=== PATIENT | male | born 1970 | race American Indian/Alaskan Native ===

== ENCOUNTER 2020-07-13 19:10 | Emergency (ER) | payer MEDICARE, OTHER ==
--- NOTE | 2020-07-13 20:03 | Event Note ---
ED Screening Note ED Screening Note: hx of migraines neurologist a couple of years ago states he is on propronol for migraines left occipital headache that began a couple weeks did not take anything for the headache states he went to [facility] a couple weeks ago and did lab, urine, and EKG did not write anything for headache at that time allergy: sertaline no vision changes no weakness no issues with ambulation or speech states occasionally he has tingling in his left fingers, no tingling or numbness currently This initial assessment/diagnostic orders/clinical plan/treatment(s) is/are subject to change based on patients health status, clinical progression and re- assessment by fellow clinical providers in the ED. Further treatment and workup at subsequent clinical providers discretion. Patient/guardian urged not to elope from the ED as their condition may be serious if not clinically assessed and managed. Initial orders include: ct head ACC
--- NOTE | 2020-07-13 21:17 | Cat Scan Report ---
CT HEAD WITHOUT CONTRAST INDICATION / CLINICAL INFORMATION: left occipital WINTER, tingling left fingers. TECHNIQUE: All CT scans at this location are performed using CT dose reduction for ALARA by means of automated e xposure control. COMPARISON: None available. FINDINGS: HEMORRHAGE: None. EXTRA-AXIAL SPACES: Normal in size and morphology for the patient's age. VENTRICULAR SYSTEM: Normal in size and morphology for the patient's age. CEREBRAL PARENCHYMA: No significant abnormality. No acute territorial infarct. MIDLINE SHIFT OR HERNIATION: None. CEREBELLUM / BRAINSTEM: No significant abnormality. ORBITS: Normal as visualized. SOFT TISSUES of HEAD: No significant abnormality. CALVARIUM: No significant abnormality. PARANASAL SINUSES / MASTOID AIR CELLS: Normal as visualized. ADDITIONAL FINDINGS: None. IMPRESSION: 1. No acute intracranial abnormality. Signer Name: Aiden Burrell MD Signed: 07/13/2020 9:13 PM Workstation Name: [id number]
--- NOTE | 2020-07-13 22:52 | Emergency Department Report ---
ED Headache HPI - General Chief Complaint: Headache Stated Complaint: CHEST PAIN/MIGRAINE/NAUSEA Time Seen by Provider: 07/13/20 19:59 Source: patient, RN notes reviewed Exam Limitations: no limitations - History of Present Illness Initial Comments: 50-year-old -[place] male with a known history of migraine presents emerged department complaining of having occipital headache off and on for the past couple days not responding to his propanolol so decided come to the emergency department and be evaluated. States that is not quite the same migraine pattern as there was no visual changes no scotomas reports no chest pain no palpitation did have a vague lightheadedness which was spontaneous and now resolved. Reports no numbness or tingling no no weakness no speech issue no syncope Head Injury Location: occipital Recent Head Trauma: no recent headache/trauma Associated Symptoms: denies symptoms. denies: confusion, fatigue, fever/chills, nausea/vomiting, nasal congestion, stiff neck, vision changes Allergies/Adverse Reactions: Allergies sertraline [From Zoloft] Adverse Reaction (Verified 07/13/20 19:24) Angioedema Home Medications: Ambulatory Orders Ketorolac [Toradol] 10 mg PO Q6H PRN #10 tablet 07/13/20 ED Review of Systems ROS: Stated complaint: CHEST PAIN/MIGRAINE/NAUSEA Other details as noted in HPI Comment: All other systems reviewed and negative ED Past Medical Hx - Past Medical History Hx Headaches / Migraines: Yes Hx Psychiatric Treatment: Yes (ptsd) - Surgical History Past Surgical History?: No - Social History Smoking Status: Never Smoker Substance Use Type: None - Medications Home Medications: Home Medications Medication Instructions Recorded Confirmed Last Taken Type Ketorolac [Toradol] 10 mg PO Q6H PRN #10 tablet 07/13/20 Unknown Rx ED Physical Exam - General Limitations: No Limitations General appearance: alert, in no apparent distress - Head Head exam: Present: atraumatic, normocephalic - Eye Eye exam: Present: normal appearance, PERRL, EOMI. Absent: nystagmus Pupils: Present: other (Negative funduscopic examination) - ENT ENT exam: Present: mucous membranes moist - Neck Neck exam: Present: normal inspection - Respiratory Respiratory exam: Present: normal lung sounds bilaterally. Absent: respiratory distress - Cardiovascular Cardiovascular Exam: Present: regular rate, normal rhythm. Absent: systolic murmur, diastolic murmur, rubs, gallop - GI/Abdominal GI/Abdominal exam: Present: soft, normal bowel sounds - Rectal Rectal exam: Present: deferred - Extremities Exam Extremities exam: Present: normal inspection - Back Exam Back exam: Present: normal inspection. Absent: CVA tenderness (R), CVA tenderness (L) - Neurological Exam Neurological exam: Present: alert, oriented X3, CN II-XII intact, normal gait, reflexes normal, other (Romberg negative normal [id number] normal [id number]-[id number] gait coordinated and smooth no ataxia speech is clear normal). Absent: motor sensory deficit - Psychiatric Psychiatric exam: Present: normal affect, normal mood - Skin Skin exam: Present: warm, dry, intact, normal color. Absent: rash ED Course Vital Signs 07/13/20 19:23 Temperature 97.8 F Pulse Rate 72 Respiratory 20 Rate Blood Pressure 133/81 O2 Sat by Pulse 99 Oximetry ED Medical Decision Making - Radiology Data Radiology results: [place] [address] Cat Scan Report Signed Patient: PASTORA HILL MR#: [id number] : 1970 Acct:[id number] Age/Sex: 50 / M ADM Date: 07/13/20 Loc: ED Attending Dr: Ordering Physician: JESSIE MOLINA Date of Service: 07/13/20 Procedure(s): CT head/brain wo con Accession Number(s): [id number] cc: JESSIE MOLINA CT HEAD WITHOUT CONTRAST INDICATION / CLINICAL INFORMATION: left occipital WINTER, tingling left fingers. TECHNIQUE: All CT scans at this location are performed using CT dose reduction for ALARA by means of automated exposure control. COMPARISON: None available. FINDINGS: HEMORRHAGE: None. EXTRA-AXIAL SPACES: Normal in size and morphology for the patient's age. VENTRICULAR SYSTEM: Normal in size and morphology for the patient's age. CEREBRAL PARENCHYMA: No significant abnormality. No acute territorial infarct. MIDLINE SHIFT OR HERNIATION: None. CEREBELLUM / BRAINSTEM: No significant abnormality. ORBITS: Normal as visualized. SOFT TISSUES of HEAD: No significant abnormality. CALVARIUM: No significant abnormality. PARANASAL SINUSES / MASTOID AIR CELLS: Normal as visualized. ADDITIONAL FINDINGS: None. IMPRESSION: 1. No acute intracranial abnormality. Signer Name: Aiden Burrell MD Signed: 07/13/2020 9:13 PM Workstation Name: [id number] Transcribed By: TL Dictated By: Aiden Burrell MD Electronically Authenticated By: Aiden Burrell MD Signed Date/Time: 07/13/202112 DD/ 10 TD/TT: - Medical Decision Making This patient presents with a headache most consistent with occipital headache. Differential diagnosis includes migraine versus tension type headache also occipital neuralgia. No headache red flags. Neurologic exam without evidence of meningismus, focal neurologic findings.Based on the patient's history and physical there is very low clinical suspicion for significant intracranial pathology. The headache was NOT sudden onset, NOT maximal at onset, there are NO neurologic findings, the patient does NOT have a fever, the patient does NOT have any jaw claudication, the patient does NOT endorse a clotting disorder, patient DENIES any trauma or eye pain and the headache is NOT associated with dizziness or ataxia. Presentation not consistent with acute intracranial bleed to include SAH (lack of risk factors, headache history). Presentation not consistent with acute LIME SLUDGE MIXER infection to include meningitis or brain abscess, Temporal arteritis unlikely, as is acute angle closure glaucoma given history and physical findings. Presentation not consistent with other acute, emergent causes of headache at this time. Plan to treat symptomatically with pain medication. No indication for imaging/LP at this time. Plan: pain medication, CT brain was normal, serial reassessment Critical care attestation.: If time is entered above; I have spent that time in minutes in the direct care of this critically ill patient, excluding procedure time. ED Disposition Clinical Impression: Cephalgia Disposition: DC-01 TO HOME OR SELFCARE Is pt being admited?: No Does the pt Need Aspirin: No Condition: Stable Instructions: Occipital Neuralgia, Form - Headache Record, Migraine Headache, [id number] Prescriptions: Ketorolac [Toradol] 10 mg PO Q6H PRN #10 tablet PRN Reason: Pain Referrals: PRIMARY CARE, [Primary Care Provider] - 3-5 Days [facility] [Provider Group] - 3-5 Days ERIN JASSO MD [Staff Physician] - 3-5 Days
[2020-07-13 22:56] VITALS: BP 122/77
== END 2020-07-13 23:43 | disposition home or self-care (01) ==
LOC: ED 19:10
DX: R51.9 Headache, unspecified (principal); R42 Dizziness and giddiness; Z79.899 Other long term (current) drug therapy; Z88.8 Allergy status to other drugs, medicaments and biological substances
CPT/HCPCS: 70450

== ENCOUNTER 2020-09-18 00:02 | Emergency (ER) | payer MEDICARE, OTHER ==
--- NOTE | 2020-09-18 00:09 | Emergency Department Report ---
Blank Doc - Documentation Documentation: 2-3-day history of chest pain with numbness tingling burning of radiates to the left arm of unknown etiology. No infectious symptoms no infectious contacts no hemoptysis no hematemesis This initial assessment/diagnostic orders/clinical plan/treatment(s) is/are subject to change based on patients health status, clinical progression and re- assessment by fellow clinical providers in the ED. Further treatment and workup at subsequent clinical providers discretion. Patient/guardian urged not to elope from the ED as their condition may be serious if not clinically assessed and managed. Initial orders include: Cardiac eval
[2020-09-18 00:26] LABS: Basophils % (Auto) 0.8 % (0.0-1.8); Eosinophils # (Auto) 0.1 K/mm3 (0.0-0.4); Hematocrit 39.5 % (35.5-45.6); Hemoglobin 13.8 gm/dl (11.8-15.2); Lymphocytes # (Auto) 2.9 K/mm3 (1.2-5.4); Mean Corpuscular HGB Conc 35 % (32-34); Mean Corpuscular Volume 93 fl (84-94); Monocytes # (Auto) 0.7 K/mm3 (0.0-0.8); Monocytes % (Auto) 11.4 % (0.0-7.3); Platelet Count 198 K/mm3 (140-440); Red Blood Count 4.24 M/mm3 (3.65-5.03); Red Cell Distribution Width 12.8 % (13.2-15.2)
[2020-09-18 00:50] LABS: Alanine Aminotransferase 19 units/L (7-56); Albumin 4.4 g/dL (3.9-5); BUN/Creatinine Ratio 18; Blood Urea Nitrogen 14 mg/dL (9-20); Calcium 9.4 mg/dL (8.4-10.2); Hemolysis Index 7
--- NOTE | 2020-09-18 00:52 | Emergency Department Report ---
ED Chest Pain HPI - General Chief Complaint: Chest Pain Stated Complaint: CHEST PAIN/LEFT SIDE NUMBNESS Time Seen by Provider: 09/18/20 00:34 Source: patient Mode of arrival: Ambulatory Limitations: No Limitations - History of Present Illness Initial Comments: This is a 50-year-old -Irish male who presents to the emergency department with a complaint of a throbbing pain to the left lateral chest and some radiation down the left arm. The pain, in the left arm, is mostly to the forearm. Patient says that this happened about a week ago but it went away. This evening, the pain started while he was at home resting, so he came in for further evaluation. At the time of my examination he no longer has the chest pain but still feels the throbbing pain in the left arm. He denies any shortness of breath, nausea, vomiting, back pain, diaphoresis, lower extremity swelling, fever. He did not take anything for his symptoms prior to presenta tion today. No recent travel or sick contacts at home. He follows with the [facility] for primary care. He has a past medical history of migraine headaches, anxiety, and PTSD. He is an occasional cigar smoker. He denies any illicit drug use. No known aggravating or alleviating factors. Severity scale (0 -10): 5 - Related Data Previous Rx's Medication Instructions Recorded Last Taken Type Ketorolac [Toradol] 10 mg PO Q6H PRN #10 tablet 07/13/20 Unknown Rx Allergies Allergy/AdvReac Type Severity Reaction Status Date / Time sertraline [From Zoloft] AdvReac Angioedema Verified 07/13/20 19:24 Heart Score - HEART Score History: Slightly suspicious EKG: Normal Age: 45-65 Risk factors: 1-2 risk factors Troponin: < normal limit HEART Score: 2 - Critical Actions Critical Actions: 0-3 pts:0.9-1.7%risk of adverse cardiac event.Candidate for discharge ED Review of Systems ROS: Stated complaint: CHEST PAIN/LEFT SIDE NUMBNESS Other details as noted in HPI Comment: All other systems reviewed and negative Constitutional: denies: chills, fever Eyes: denies: eye pain, vision change ENT: denies: ear pain, throat pain Respiratory: denies: cough, shortness of breath Cardiovascular: chest pain. denies: palpitations Gastrointestinal: denies: abdominal pain, vomiting Genitourinary: denies: dysuria, discharge Musculoskeletal: arthralgia. denies: joint swelling Skin: denies: rash, lesions Neurological: denies: weakness, numbness ED Past Medical Hx - Past Medical History Previous Medical History?: Yes Hx Headaches / Migraines: Yes Hx Psychiatric Treatment: Yes (ptsd) - Surgical History Past Surgical History?: No - Social History Smoking Status: Current Some Day Smoker Substance Use Type: None - Medications Home Medications: Home Medications Medication Instructions Recorded Confirmed Last Taken Type Ketorolac [Toradol] 10 mg PO Q6H PRN #10 tablet 07/13/20 Unknown Rx ED Physical Exam - General Limitations: No Limitations - Other Other exam information: GENERAL: The patient is well-developed well-nourished. HENT: Normocephalic. Atraumatic. Patient has moist mucous membranes. EYES: Extraocular motions are intact. NECK: Supple. Trachea is midline. CHEST/LUNGS: Clear to auscultation. There is no respiratory distress noted. HEART/CARDIOVASCULAR: Regular. There is no tachycardia. There is no murmur. ABDOMEN: Abdomen is soft, nontender. Patient has normal bowel sounds. SKIN: Skin is warm and dry. NEURO: The patient is awake, alert, and oriented. The patient is cooperative. The patient has no focal neurologic deficits. Normal speech. MUSCULOSKELETAL: There is some mild reproducible tenderness to palpation to the left forearm. No obvious deformity. Radial pulse +2/4 and capillary refill less than 2 seconds to the affected left upper extremity.. There is no limitation range of motion. There is no evidence of acute injury. ED Course Vital Signs 09/18/20 09/18/20 09/18/20 00:08 00:43 02:00 Temperature 98.1 F Pulse Rate 98 H 64 Respiratory 16 18 16 Rate Blood Pressure 130/85 112/62 [right arm] O2 Sat by Pulse 96 99 Oximetry 09/18/20 09/18/20 03:00 03:52 Temperature 98.2 F Pulse Rate 79 79 Respiratory 16 16 Rate Blood Pressure 128/76 106/56 [right arm] O2 Sat by Pulse 99 99 Oximetry DELL score - Dell Score Age > 65: (0) No Aspirin use within the Past 7 Days: (0) No 3 or more CAD Risk Factors: (0) No 2 or more Angina events in past 24 hrs: (1) Yes Known CAD with more than 50% Stenosis: (0) No Elevated Cardiac Markers: (0) No ST Deviation Greater than 0.5mm: (0) No DELL Score: 1 ED Medical Decision Making - Lab Data Result diagrams: 09/18/20 00:11 09/18/20 00:11 Lab Results 09/18/20 09/18/20 09/18/20 Range/Units 00:11 00:11 03:01 WBC 6.1 (4.5-11.0) K/mm3 RBC 4.24 (3.65-5.03) M/mm3 Hgb 13.8 (11.8-15.2) gm/dl Hct 39.5 (35.5-45.6) % MCV 93 (84-94) fl MCH 33 H (28-32) pg MCHC 35 H (32-34) % RDW 12.8 L (13.2-15.2) % Plt Count 198 (140-440) K/mm3 Lymph % (Auto) 48.0 H (13.4-35.0) % [place] % (Auto) 11.4 H (0.0-7.3) % Eos % (Auto) 1.0 (0.0-4.3) % Baso % (Auto) 0.8 (0.0-1.8) % Lymph # (Auto) 2.9 (1.2-5.4) K/mm3 [place] # (Auto) 0.7 (0.0-0.8) K/mm3 Eos # (Auto) 0.1 (0.0-0.4) K/mm3 Baso # (Auto) 0.0 (0.0-0.1) K/mm3 Seg Neutrophils % 38.8 L (40.0-70.0) % Seg Neutrophils # 2.4 (1.8-7.7) K/mm3 Sodium 141 (137-145) mmol/L Potassium 3.7 (3.6-5.0) mmol/L Chloride 102.0 (98-107) mmol/L Carbon Dioxide 28 (22-30) mmol/L Anion Gap 15 mmol/L BUN 14 (9-20) mg/dL Creatinine 0.8 (0.8-1.3) mg/dL Estimated GFR > 60 ml/min BUN/Creatinine Ratio 18 % Glucose 111 H (75-100) mg/dL Calcium 9.4 (8.4-10.2) mg/dL Total Bilirubin 0.30 (0.1-1.2) mg/dL AST 20 (5-40) units/L ALT 19 (7-56) units/L Alkaline Phosphatase 63 (35-129) units/L Troponin T < 0.010 < 0.010 (0.00-0.029) ng/mL Total Protein 6.8 (6.3-8.2) g/dL Albumin 4.4 (3.9-5) g/dL Albumin/Globulin Ratio 1.8 % - EKG Data -: EKG Interpreted by Me EKG shows normal: sinus rhythm, axis, intervals, QRS complexes, ST-T waves Rate: normal - EKG Data When compared to previous EKG there are: previous EKG unavailable Interpretation: normal EKG - Radiology Data Radiology results: image reviewed interpreted by me: Chest x-ray does not show any acute process. There are no pleural effusions, obvious pneumonia and there is no pneumothorax. No significant cardiomegaly. - Medical Decision Making This patient presents with a few days of some intermittent left lateral chest pain, as well as some pain to the left arm that appears to be mostly in the forearm region. There is some reproducible tenderness to palpation to the left forearm, but no obvious deformity. He is neurovascularly intact. No swelling of the extremity, bruising, rash, lesions. EKG is normal and does not have any morphology consistent with ST elevation myocardial infarction or any dysrhythmia. Chest x-ray does not show any pneumonia, pleural effusions, pneumothorax, focal consolidation, or any other acute process. Patient's labs have been unremarkable including CBC, metabolic panel and negative troponins x2. The patient's chest pain appears to have resolved at the time of my initial examination. The patient is low on the heart and DELL score. He is low on the Wells score criteria and negative on the pulmonary embolism rule out criteria. For all these reasons the patient appears safe for discharge home at this time. His contact information has been sent over to the [facility], and someone from their office should be contacting him shortly for close outpatient follow-up as part of our hospitals low risk chest pain protocol. Critical Care Time: No Critical care attestation.: If time is entered above; I have spent that time in minutes in the direct care of this critically ill patient, excluding procedure time. ED Disposition Clinical Impression: Left arm pain Chest pain Qualifiers: Chest pain type: unspecified Qualified Code(s): R07.9 - Chest pain, unspecified Disposition: - TO HOME OR SELFCARE Is pt being admited?: No Condition: Stable Instructions: Nonspecific Chest Pain, Adult, Chest Pain (ED) Additional Instructions: Please follow-up with your primary care physician in the next few days. I am sending your contact information over to the [facility], and someone from their office should be contacting you shortly for close outpatient follow-up. Just in case, I am giving you a referral for one of their cardiologists, Dr. Fung. Return to the emergency department with any worsening of your symptoms, new or concerning symptoms not addressed during this current emergency department visit, or with any acute distress. Referrals: PRIMARY CARE, [Primary Care Provider] - 2-3 Days JONNATHAN FUNG MD [Staff Physician] - 2-3 Days [facility] [Outside] - 2-3 Days Time of Disposition: 03:47
--- NOTE | 2020-09-18 00:56 | XRay Report ---
CHEST 2 VIEWS INDICATION / CLINICAL INFORMATION: Chest Pain. COMPARISON: None available. FINDINGS: SUPPORT DEVICES: None. HEART / MEDIASTINUM: No significant abnormality. LUNGS / PLEURA: No significant pulmonary or pleural abnormality. No pneumothorax. ADDITIONAL FINDINGS: No significant additional findings. IMPRESSION: 1. No acute findings. Signer Name: Jayjay Chisholm MD Signed: 09/18/2020 12:52 AM Workstation Name: [id number]
[2020-09-18] MEDS ORDERED: KETOROLAC 30 MG/1 ML INJ IM ONE (01:03)
[2020-09-18 03:53] VITALS: BP 106/56
== END 2020-09-18 03:59 | disposition home or self-care (01) ==
LOC: ED 00:02
DX: R07.89 Other chest pain (principal); M79.602 Pain in left arm; R20.0 Anesthesia of skin; G43.909 Migraine, unspecified, not intractable, without status migrainosus; F17.200 Nicotine dependence, unspecified, uncomplicated; Z79.899 Other long term (current) drug therapy; Z88.8 Allergy status to other drugs, medicaments and biological substances
CPT/HCPCS: 36415; 71046; 80053; 84484; 85025; 93005; 96372; 99284; J1885

== ENCOUNTER 2020-10-11 21:07 | Emergency (ER) | payer MEDICARE, OTHER ==
[2020-10-11 21:17] VITALS: BP 114/77
[2020-10-11 22:09] LABS: Basophils % (Auto) 0.6 % (0.0-1.8); Eosinophils % (Auto) 0.5 % (0.0-4.3); Hemoglobin 14.4 gm/dl (11.8-15.2); Lymphocytes # (Auto) 1.8 K/mm3 (1.2-5.4); Lymphocytes % (Auto) 31.3 % (13.4-35.0); Mean Corpuscular HGB Conc 34 % (32-34); Mean Corpuscular Volume 93 fl (84-94); Monocytes # (Auto) 0.4 K/mm3 (0.0-0.8); Monocytes % (Auto) 7.1 % (0.0-7.3); Platelet Count 175 K/mm3 (140-440); Red Blood Count 4.51 M/mm3 (3.65-5.03); Red Cell Distribution Width 13.4 % (13.2-15.2)
[2020-10-11 22:26] LABS: Alanine Aminotransferase 15 units/L (7-56); Albumin 4.7 g/dL (3.9-5); BUN/Creatinine Ratio 24; Blood Urea Nitrogen 19 mg/dL (9-20); Hemolysis Index 3
[2020-10-11] MEDS ORDERED: LIDOCAINE VISCOUS 2% 15 ML ORAL LIQD PO ONE (22:36)
[2020-10-11] MEDS ORDERED: ALUM-MAG HYDROXIDE-SIMETHICONE 200-200-20MG/5ML ORAL LIQD 30 ML PO STA (22:36)
[2020-10-11] MEDS ORDERED: diphenhydrAMINE 25 MG/10 ML ORAL LIQUID PO ONE (22:36)
--- NOTE | 2020-10-11 22:42 | Emergency Department Report ---
ED General Adult HPI - General Chief complaint: Chest Pain Stated complaint: FEELING DIZZY/BURING IN CHEST Time Seen by Provider: 10/11/20 21:52 Source: patient Mode of arrival: Ambulatory Limitations: No Limitations - History of Present Illness Initial comments: 50-year-old -Tristanian male presents emerge department complaining of a several month history of epigastric abdominal pain episodes. States that this initially started a couple years ago and has been having various episodes of pain that radiated up to his chest have an unknown etiology. Symptoms are associated with nausea but currently the pain is primarily sharp and burning radiating up the chest with no relation to exertion or respirations. Reports no diarrhea, no constipation, no hemoptysis, no hematemesis, no hematochezia, no melena. States he was advised to follow-up with with GI in the past but was unable to do so as it was difficult to get an appointment with the [facility] system Radiation: non-radiation Quality: burning Consistency: constant Improves with: none Worsens with: none Treatments Prior to Arrival: none - Related Data Previous Rx's Medication Instructions Recorded Last Taken Type Ketorolac [Toradol] 10 mg PO Q6H PRN #10 tablet 07/13/20 Unknown Rx Hyoscyamine Subl [Levsin Sl 0.125 0.125 mg SL Q4HR PRN #20 tablet 10/11/20 Unknown Rx TAB] Omeprazole 40 mg PO DAILY #30 capsule. 10/11/20 Unknown Rx Allergies Allergy/AdvReac Type Severity Reaction Status Date / Time sertraline [From Zoloft] AdvReac Angioedema Verified 07/13/20 19:24 ED Review of Systems ROS: Stated complaint: FEELING DIZZY/BURING IN CHEST Other details as noted in HPI Comment: All other systems reviewed and negative ED Past Medical Hx - Past Medical History Previous Medical History?: Yes Hx Headaches / Migraines: Yes Hx Psychiatric Treatment: Yes (PTSD) - Surgical History Past Surgical History?: Yes Additional Surgical History: Vasectomy. Right Shoulder - Social History Smoking Status: Current Every Day Smoker Substance Use Type: None - Medications Home Medications: Home Medications Medication Instructions Recorded Confirmed Last Taken Type Ketorolac [Toradol] 10 mg PO Q6H PRN #10 tablet 07/13/20 Unknown Rx Hyoscyamine Subl [Levsin Sl 0.125 0.125 mg SL Q4HR PRN #20 tablet 10/11/20 Unknown Rx TAB] Omeprazole 40 mg PO DAILY #30 capsule. 10/11/20 Unknown Rx ED Physical Exam - General Limitations: No Limitations General appearance: alert, in no apparent distress - Head Head exam: Present: atraumatic, normocephalic - Eye Eye exam: Present: normal appearance, PERRL, EOMI Pupils: Present: normal accommodation - ENT ENT exam: Present: mucous membranes moist, TM's normal bilaterally - Neck Neck exam: Present: normal inspection, full ROM - Respiratory Respiratory exam: Present: normal lung sounds bilaterally. Absent: respiratory distress - Cardiovascular Cardiovascular Exam: Present: regular rate, normal rhythm. Absent: systolic murmur, diastolic murmur, rubs, gallop - GI/Abdominal GI/Abdominal exam: Present: soft, tenderness (epigastric tenderness), normal bowel sounds - Rectal Rectal exam: Present: deferred - Extremities Exam Extremities exam: Present: normal inspection - Back Exam Back exam: Present: normal inspection, CVA tenderness (R), CVA tenderness (L) - Neurological Exam Neurological exam: Present: alert, oriented X3, CN II-XII intact - Psychiatric Psychiatric exam: Present: normal affect, normal mood - Skin Skin exam: Present: warm, dry, intact, normal color. Absent: rash ED Course Vital Signs 10/11/20 21:11 Temperature 98.6 F Pulse Rate 89 Respiratory 18 Rate Blood Pressure 114/77 O2 Sat by Pulse 96 Oximetry ED Medical Decision Making - Lab Data Result diagrams: 10/11/20 21:53 10/11/20 21:53 - Medical Decision Making This patient presents with abdominal pain of unclear etiology. Their evaluation has not identified a emergent etiology for the abdominal pain. Specifically, given the very benign exam, normal laboratory studies, and lack of significant risk factors, I have a very low suspicion for appendicitis, ischemic bowel, bowel perforation, or any other life threatening disease. I have discussed with the patient the level of uncertainty with undifferentiated abdominal pain and clearly explained the need to follow-up as noted on the discharge instructions, or return to the Emergency Department immediately if the pain worsens, develops fever, persistent and uncontrollable vomiting, or for any new symptoms or concerns. I discussed with the patient that this presentation today for abdominal pain could represent a significant risk for an acute abdominal process. Although the tests in the ED were essentially normal, there is still a possibility of a process such as appendicitis, diverticulitis, cholecystitis, ulcer, early bowel obstruction, mesenteric ischemia, kidney stone, or even kidney infection which could subsequently cause disability or . The patient understands that they must return within 24 hours for a recheck or see their physician within 24 hours for re-exam due to the possibility of significant surgical or medical process. Critical care attestation.: If time is entered above; I have spent that time in minutes in the direct care of this critically ill patient, excluding procedure time. ED Disposition Clinical Impression: Epigastric abdominal pain Disposition: TO HOME OR SELFCARE Is pt being admited?: No Does the pt Need Aspirin: No Condition: Stable Instructions: Abdominal Pain, Adult, Pain Without a Known Cause Prescriptions: Hyoscyamine Subl [Levsin Sl 0.125 TAB] 0.125 mg SL Q4HR PRN #20 tablet PRN Reason: Spasms Omeprazole 40 mg PO DAILY #30 capsule. Referrals: PRIMARY CARE [Primary Care Provider] - 3-5 Days [facility] [Provider Group] - 3-5 Days
== END 2020-10-11 23:12 | disposition home or self-care (01) ==
LOC: ED 21:07
DX: R10.13 Epigastric pain (principal); R11.0 Nausea; G43.909 Migraine, unspecified, not intractable, without status migrainosus; F17.200 Nicotine dependence, unspecified, uncomplicated; Z98.890 Other specified postprocedural states; Z79.899 Other long term (current) drug therapy; Z88.8 Allergy status to other drugs, medicaments and biological substances
CPT/HCPCS: 36415; 80053; 83690; 85025; 93005; 99283; Q0163

== ENCOUNTER 2020-12-22 00:49 | Emergency (ER) | payer MEDICARE, OTHER ==
[2020-12-22 01:19] VITALS: BP 113/74
[2020-12-22] MEDS ORDERED: PANTOPRAZOLE 40 MG TAB PO ONE (05:20)
[2020-12-22] MEDS ORDERED: ONDANSETRON 4 MG ODT TAB PO ONE (05:20)
--- NOTE | 2020-12-22 05:22 | Emergency Department Report ---
Vomiting/Diarrhea - HPI Chief Complaint: Nausea/Vomiting/Diarrhea Stated Complaint: NAUSEA/THROWING UP BLOOD Time Seen by Provider: 12/22/20 05:17 Duration: Today Severity: mild Nausea/Vomiting Severity: Mild Diarrhea Severity: None Pain Location: Epigastric Symptoms: Yes Able to Tolerate Fluids Other History: 50-year-old -Guyanese male with a history of reflux comes in reporting epigastric discomfort with nausea and vomiting. Last vomited approximately 4 hours ago. States that his provider has placed him on famotidine twice a day. Patient does admit to drinking alcohol which appears to have exacerbated his discomfort. Patient reports he is able to hold down fluids. ED Review of Systems ROS: Stated complaint: NAUSEA/THROWING UP BLOOD Other details as noted in HPI Comment: All other systems reviewed and negative ED Past Medical Hx - Past Medical History Previous Medical History?: Yes Hx Headaches / Migraines: Yes Hx Psychiatric Treatment: Yes (PTSD) - Surgical History Past Surgical History?: Yes Additional Surgical History: Vasectomy. Right Shoulder - Social History Smoking Status: Never Smoker Substance Use Type: None - Medications Home Medications: Home Medications Medication Instructions Recorded Confirmed Last Taken Type Ketorolac [Toradol] 10 mg PO Q6H PRN #10 tablet 07/13/20 Unknown Rx Hyoscyamine Subl [Levsin Sl 0.125 0.125 mg SL Q4HR PRN #20 tablet 10/11/20 Unknown Rx TAB] Omeprazole 40 mg PO DAILY #30 capsule. 10/11/20 Unknown Rx Vomiting Diarrhea Exam - Exam General: Vital signs noted. No distress. Alert and acting appropriately. HEENT: Yes Moist Mucous Membranes, No Pharyngeal Erythema, No Pharyngeal Exudates, No Rhinorrhea, No Conjuctival Injection, No Frontal Tenderness, No Maxillary Tenderness Neck: No Adenopathy, No Rigidity Lungs: Yes Clear Lung Sounds, Yes Good Air Exchange, No Wheezes, No Stridor, No Cough, No Nasal Flaring, No Retractions, No Use of Accessory Muscles Heart exam: Regular: Yes, Murmur: No, Tachycardia: No Abdomen: Tenderness: Yes (Epigastric), Peritoneal Signs: No, Distention: No, Hyperactive Bowel sounds: No Neurologic: Alert and oriented, no deficits. Musculoskeletal: Unremarkable. ED Course Vital Signs 12/22/20 01:16 Temperature 98.2 F Pulse Rate 88 Respiratory 18 Rate Blood Pressure 113/74 O2 Sat by Pulse 94 Oximetry - Reevaluation(s) Reevaluation #1: 12/22/20 07:00 Patient states he feels somewhat better. ED Medical Decision Making - Medical Decision Making 50-year-old -Guyanese male with a history of reflux comes in reporting epigastric discomfort with nausea and vomiting. Last vomited approximately 4 hours ago. States that his provider has placed him on famotidine twice a day. Patient does admit to drinking alcohol which appears to have exacerbated his discomfort. Patient reports he is able to hold down fluids. Protonix 40 mg, Carafate 1 g p.o. and Zofran 4 mg p.o. has been ordered. Discussed with patient to take his famotidine when he gets home. Be sure to stay away from alcohol beverages greasy fatty foods, orange juice sodas as this can irritate his reflux. Critical care attestation.: If time is entered above; I have spent that time in minutes in the direct care of this critically ill patient, excluding procedure time. ED Disposition Clinical Impression: Reflux esophagitis Qualifiers: Esophagitis bleeding: without hemorrhage Qualified Code(s): K21.00 - Gastro- esophageal reflux disease with esophagitis, without bleeding Disposition: DC-01 TO HOME OR SELFCARE Is pt being admited?: No Does the pt Need Aspirin: No Condition: Stable Instructions: Heartburn, [id number] Additional Instructions: Continue with your reflux medication. Stay away from ETOH, orange juice, sodas. Referrals: [facility] [Outside] - 3-5 Days
[2020-12-22] MEDS ORDERED: SUCRALFATE 1 GM/10 ML ORAL LIQD PO ONE (05:23)
== END 2020-12-22 07:01 | disposition home or self-care (01) ==
LOC: ED 00:49
DX: K21.00 Gastro-esophageal reflux disease with esophagitis, without bleeding (principal); G43.909 Migraine, unspecified, not intractable, without status migrainosus; Z98.890 Other specified postprocedural states; Z79.899 Other long term (current) drug therapy; Z88.8 Allergy status to other drugs, medicaments and biological substances
CPT/HCPCS: 99282; Q0162

== ENCOUNTER 2021-01-11 22:37 | Emergency (ER) | payer MEDICARE, OTHER ==
[2021-01-12 00:51] LABS: Basophils % (Auto) 0.4 % (0.0-1.8); Eosinophils # (Auto) 0.1 K/mm3 (0.0-0.4); Eosinophils % (Auto) 0.9 % (0.0-4.3); Lymphocytes # (Auto) 2.7 K/mm3 (1.2-5.4); Lymphocytes % (Auto) 34.7 % (13.4-35.0); Mean Corpuscular HGB Conc 34 % (32-34); Mean Corpuscular Volume 90 fl (84-94); Monocytes # (Auto) 0.7 K/mm3 (0.0-0.8); Monocytes % (Auto) 9.4 % (0.0-7.3); Platelet Count 233 K/mm3 (140-440); Red Blood Count 4.87 M/mm3 (3.65-5.03); Red Cell Distribution Width 13.1 % (13.2-15.2)
[2021-01-12 01:00] LABS: Alanine Aminotransferase 20 units/L (7-56); Albumin 4.9 g/dL (3.9-5); BUN/Creatinine Ratio 18; Blood Urea Nitrogen 14 mg/dL (9-20); Calcium 9.6 mg/dL (8.4-10.2); Hemolysis Index 8
[2021-01-12] MEDS ORDERED: ALUM-MAG HYDROXIDE-SIMETHICONE 200-200-20MG/5ML ORAL LIQD 30 ML PO ONE (02:43)
[2021-01-12] MEDS ORDERED: ONDANSETRON 4 MG ODT TAB PO ONE (02:43)
[2021-01-12] MEDS ORDERED: LIDOCAINE VISCOUS 2% 15 ML ORAL LIQD PO ONE (02:43)
--- NOTE | 2021-01-12 02:44 | XRay Report ---
CHEST 2 VIEWS 0000 INDICATION / CLINICAL INFORMATION: Chest Pain COMPARISON: 09/18/2020 FINDINGS: SUPPORT DEVICES: None. HEART / MEDIASTINUM: No significant abnormality. LUNGS / PLEURA: No significant pulmonary or pleural abnormality. No pneumothorax. ADDITIONAL FINDINGS: No significant additional findings. IMPRESSION: No significant acute abnormality Signer Name: Earnest Hernandez MD Signed: 01/12/2021 2:39 AM Workstation Name: [id number]
--- NOTE | 2021-01-12 02:58 | Emergency Department Report ---
ED Chest Pain HPI - General Chief Complaint: Chest Pain Stated Complaint: VOMITING,CHEST PAIN Time Seen by Provider: 01/12/21 02:37 Source: patient Mode of arrival: Ambulatory Limitations: No Limitations - History of Present Illness Initial Comments: This is a 50-year-old -Armenian male presents to the emergency department with complaint of some midsternal chest pain that started around noon. It is associated with nausea with one episode of vomiting. Later on this evening the patient also began having a little bit of upper abdominal pain. He denies any fever, shortness of breath, dysuria, constipation, diarrhea, back pain. He took some Mylanta and ibuprofen for his symptoms prior to presentation without much relief. Currently his chest pain is 5 out of 10 in intensity. No known aggravating or alleviating factors. He has a past medical history of PTSD and migraines. He denies any illicit drug use. He quit smoking cigarettes about 2 months ago. No recent travel or sick contacts at home. - Related Data Previous Rx's Medication Instructions Recorded Last Taken Type Ketorolac [Toradol] 10 mg PO Q6H PRN #10 tablet 07/13/20 Unknown Rx Hyoscyamine Subl [Levsin Sl 0.125 0.125 mg SL Q4HR PRN #20 tablet 10/11/20 Unknown Rx TAB] Omeprazole 40 mg PO DAILY #30 capsule. 10/11/20 Unknown Rx Allergies Allergy/AdvReac Type Severity Reaction Status Date / Time sertraline [From Zoloft] AdvReac Angioedema Verified 07/13/20 19:24 Heart Score - HEART Score History: Slightly suspicious EKG: Normal Age: 45-65 Risk factors: 1-2 risk factors Troponin: < normal limit HEART Score: 2 - EKG Read Time Time EKG Completed: 23:41 EKG Read Time: 23:45 - Critical Actions Critical Actions: 0-3 pts:0.9-1.7%risk of adverse cardiac event.Candidate for discharge ED Review of Systems ROS: Stated complaint: VOMITING,CHEST PAIN Other details as noted in HPI Comment: All other systems reviewed and negative Constitutional: denies: chills, fever Eyes: denies: eye pain, vision change ENT: denies: ear pain, throat pain Respiratory: denies: cough, shortness of breath Cardiovascular: chest pain. denies: palpitations Gastrointestinal: abdominal pain, nausea, vomiting Genitourinary: denies: dysuria, discharge Musculoskeletal: denies: back pain, arthralgia Skin: denies: rash, lesions Neurological: denies: headache, weakness ED Past Medical Hx - Past Medical History Hx Headaches / Migraines: Yes Hx Psychiatric Treatment: Yes (PTSD) - Surgical History Additional Surgical History: Vasectomy. Right Shoulder - Social History Smoking Status: Never Smoker - Medications Home Medications: Home Medications Medication Instructions Recorded Confirmed Last Taken Type Ketorolac [Toradol] 10 mg PO Q6H PRN #10 tablet 07/13/20 Unknown Rx Hyoscyamine Subl [Levsin Sl 0.125 0.125 mg SL Q4HR PRN #20 tablet 10/11/20 Unknown Rx TAB] Omeprazole 40 mg PO DAILY #30 capsule. 10/11/20 Unknown Rx ED Physical Exam - General Limitations: No Limitations - Other Other exam information: GENERAL: The patient is well-developed well-nourished. HENT: Normocephalic. Atraumatic. Patient has moist mucous membranes. EYES: Extraocular motions are intact. NECK: Supple. Trachea is midline. CHEST/LUNGS: Clear to auscultation. There is no respiratory distress noted. There is some reproducible tenderness to palpation of the chest wall but no crepitus or deformity. HEART/CARDIOVASCULAR: Regular. There is no tachycardia. There is no murmur. ABDOMEN: Abdomen is soft. Mild epigastric tenderness to palpation. No gu arding. Patient has normal bowel sounds. There is no abdominal distention. SKIN: Skin is warm and dry. NEURO: The patient is awake, alert, and oriented. The patient is cooperative. The patient has no focal neurologic deficits. Normal speech. MUSCULOSKELETAL: There is no tenderness or deformity. There is no limitation range of motion. ED Course Vital Signs 01/11/21 01/12/21 23:37 03:03 Temperature 98.4 F 98.1 F Pulse Rate 84 72 Respiratory 16 16 Rate Blood Pressure 116/81 Blood Pressure 125/65 [Left] O2 Sat by Pulse 98 100 Oximetry DELL score - Dell Score Age > 65: (0) No Aspirin use within the Past 7 Days: (0) No 3 or more CAD Risk Factors: (0) No 2 or more Angina events in past 24 hrs: (1) Yes Known CAD with more than 50% Stenosis: (0) No Elevated Cardiac Markers: (0) No ST Deviation Greater than 0.5mm: (0) No DELL Score: 1 ED Medical Decision Making - Lab Data Result diagrams: 01/11/21 23:44 01/11/21 23:44 Lab Results 01/11/21 01/11/21 01/12/21 Range/Units 23:44 23:44 02:49 WBC 7.9 (4.5-11.0) K/mm3 RBC 4.87 (3.65-5.03) M/mm3 Hgb 15.0 (11.8-15.2) gm/dl Hct 44.0 (35.5-45.6) % MCV 90 (84-94) fl MCH 31 (28-32) pg MCHC 34 (32-34) % RDW 13.1 L (13.2-15.2) % Plt Count 233 (140-440) K/mm3 Lymph % (Auto) 34.7 (13.4-35.0) % [place] % (Auto) 9.4 H (0.0-7.3) % Eos % (Auto) 0.9 (0.0-4.3) % Baso % (Auto) 0.4 (0.0-1.8) % Lymph # (Auto) 2.7 (1.2-5.4) K/mm3 [place] # (Auto) 0.7 (0.0-0.8) K/mm3 Eos # (Auto) 0.1 (0.0-0.4) K/mm3 Baso # (Auto) 0.0 (0.0-0.1) K/mm3 Seg Neutrophils % 54.6 (40.0-70.0) % Seg Neutrophils # 4.3 (1.8-7.7) K/mm3 Sodium 139 (137-145) mmol/L Potassium 4.2 (3.6-5.0) mmol/L Chloride 97.8 L (98-107) mmol/L Carbon Dioxide 27 (22-30) mmol/L Anion Gap 18 mmol/L BUN 14 (9-20) mg/dL Creatinine 0.8 (0.8-1.3) mg/dL Estimated GFR > 60 ml/min BUN/Creatinine Ratio 18 % Glucose 78 (75-100) mg/dL Calcium 9.6 (8.4-10.2) mg/dL Total Bilirubin 0.80 (0.1-1.2) mg/dL AST 21 (5-40) units/L ALT 20 (7-56) units/L Alkaline Phosphatase 62 (35-129) units/L Troponin T < 0.010 < 0.010 (0.00-0.029) ng/mL Total Protein 7.6 (6.3-8.2) g/dL Albumin 4.9 (3.9-5) g/dL Albumin/Globulin Ratio 1.8 % - EKG Data -: EKG Interpreted by Me EKG shows normal: sinus rhythm, axis (left axis deviation), intervals, QRS complexes, ST-T waves Rate: normal - EKG Data When compared to previous EKG there are: previous EKG unavailable Interpretation: other (Sinus rhythm at 76 bpm, left axis deviation. Normal intervals. No ST elevation MS) - Radiology Data Radiology results: image reviewed interpreted by me: Chest x-ray does not show any acute process. There are no pleural effusions, obvious pneumonia and there is no pneumothorax. No significant cardiomegaly. No widened mediastinum. - Medical Decision Making This patient presents to the emergency department with a complaint of a 1 day history of some midsternal chest pain, some nausea with one episode of vomiting, and later on some mild upper abdominal discomfort. Heart and lung sounds are normal to auscultation. The patient does not appear in any respiratory or acute distress. EKG did not have any morphology consistent with ST elevation myocardial infarction. Chest x-ray does not show any pneumonia, pleural effusions, pneumothorax, widened mediastinum, or any other acute process. Patient's labs have been unremarkable including CBC, metabolic panel and negative troponins x2. The patient was given a dose of Zofran ODT, and a GI cocktail. Upon reevaluation he says he is feeling improved. Vital signs have been reassuring throughout his ED course. The patient is low on the heart and DELL score. From these reasons the patient appears safe for discharge home at this time. Normally he would be a good candidate for our low risk chest pain protocol. However the patient is already set up for a stress test at the [facility] on Tuesday and being followed by cardiology. There was some mild reproducible chest pain to palpation without any crepitus or deformity. There could be a component of costochondritis or chest wall pain. The patient has a history of GERD and did get some relief with a GI cocktail. There could be a GI component to his symptoms as well. He does have reflux medication at home to take. He will return to the closest emergency department with any worsening of his s ymptoms or with any acute distress. Critical Care Time: No Critical care attestation.: If time is entered above; I have spent that time in minutes in the direct care of this critically ill patient, excluding procedure time. ED Disposition Clinical Impression: Chest pain Qualifiers: Chest pain type: unspecified Qualified Code(s): R07.9 - Chest pain, unspecified GERD (gastroesophageal reflux disease) Qualifiers: Esophagitis presence: esophagitis presence not specified Qualified Code(s): K21.9 - Gastro-esophageal reflux disease without esophagitis Disposition: TO HOME OR SELFCARE Is pt being admited?: No Condition: Stable Instructions: Nonspecific Chest Pain, Adult, Gastroesophageal Reflux Disease, Adult Additional Instructions: Please follow-up with cardiology at the [place] on Tuesday as previously scheduled for your stress test. Take all of your medications as prescribed. Try to avoid foods that are acidic, spicy, tomato-based, and try to avoid any alcohol or excessive caffeine. Return to the emergency department with any worsening of your symptoms, new or concerning symptoms not addressed during this current emergency department visit, or with any acute distress. Referrals: [facility] [Other] - 2-3 Days Time of Disposition: 03:35
[2021-01-12 03:04] VITALS: BP 125/65
--- NOTE | 2021-01-13 10:33 | Electrocardiograph Report ---
[facility] Test Date: 2021-01-11 Test Time: 23:41:55 Pat Name: PASTORA HILL Department: Room: Gender: M [employer]: : 1970 Requested By: KALI OLIVER Order Number: [id number] Reading MD: Jonathan Mckenna Measurements Intervals [place] Rate: 76 P: 54 MT: 161 QRS: -41 QRSD: 76 T: 37 QT: 367 QTc: 412 Interpretive Statements Sinus rhythm Left axis deviation No previous ECG available for comparison Electronically Signed On 01-13-2021 10:33:18 EDT by Jonathan Mckenna
== END 2021-01-12 03:48 | disposition home or self-care (01) ==
LOC: ED 22:37
DX: K21.9 Gastro-esophageal reflux disease without esophagitis (principal); R07.9 Chest pain, unspecified; G43.909 Migraine, unspecified, not intractable, without status migrainosus; Z79.899 Other long term (current) drug therapy; Z88.8 Allergy status to other drugs, medicaments and biological substances; Z98.890 Other specified postprocedural states
CPT/HCPCS: 36415; 71046; 80053; 84484; 85025; 93005; Q0162

== ENCOUNTER 2021-03-05 22:11 | Emergency (ER) | payer MEDICARE, OTHER ==
[2021-03-05] MEDS ORDERED: ASPIRIN 325 MG TAB PO ONE (22:57)
--- NOTE | 2021-03-05 23:28 | XRay Report ---
XR chest routine 2V INDICATION / CLINICAL INFORMATION: chest pain. COMPARISON: 01/12/2021 FINDINGS: SUPPORT DEVICES: None. HEART /PULMONARY VASCULATURE: No significant abnormality. LUNGS / PLEURA: No significant pulmonary or pleural abnormality. No pneumothorax. ADDITIONAL FINDINGS: No significant additional findings. IMPRESSION: 1. No acute findings. Signer Name: Davey Hughes MD Signed: 03/05/2021 11:23 PM Workstation Name: [id number]
[2021-03-05 23:35] LABS: Basophils % (Auto) 0.5 % (0.0-1.8); Eosinophils # (Auto) 0.1 K/mm3 (0.0-0.4); Eosinophils % (Auto) 1.4 % (0.0-4.3); Hematocrit 42.9 % (35.5-45.6); Hemoglobin 14.6 gm/dl (11.8-15.2); Lymphocytes # (Auto) 2.9 K/mm3 (1.2-5.4); Lymphocytes % (Auto) 44.9 % (13.4-35.0); Mean Corpuscular HGB Conc 34 % (32-34); Mean Corpuscular Volume 90 fl (84-94); Monocytes # (Auto) 0.6 K/mm3 (0.0-0.8); Monocytes % (Auto) 9.2 % (0.0-7.3); Platelet Count 227 K/mm3 (140-440); Red Blood Count 4.77 M/mm3 (3.65-5.03); Red Cell Distribution Width 12.6 % (13.2-15.2)
[2021-03-05 23:51] LABS: Alanine Aminotransferase 16 units/L (7-56); Albumin 5.1 g/dL (3.9-5); BUN/Creatinine Ratio 26; Blood Urea Nitrogen 21 mg/dL (9-20); Calcium 9.9 mg/dL (8.4-10.2); Hemolysis Index 4
[2021-03-06] MEDS ORDERED: ASPIRIN 81 MG TAB CHEW ONE (07:42)
--- NOTE | 2021-03-06 08:18 | Emergency Department Report ---
ED Chest Pain HPI - General Chief Complaint: Chest Pain Stated Complaint: CHEST PAIN Time Seen by Provider: 03/06/21 07:54 Source: patient Mode of arrival: Ambulatory Limitations: No Limitations - History of Present Illness Initial Comments: 50-year-old male with history of PTSD and some kind of abdominal hernia presents complaining of a pain in his chest which occurs only when he bends over. He says that yesterday he installed an air conditioning unit and showered afterwards, he bent over to do something and felt a pop in his left upper abdomen where he was formally diagnosed with a hernia and had pain in his chest. Once he straightened out, the pain went away. The pain only occurred when bending over. He states that since then he has had occasional times when he bends over and the pain occurs. The pain is in his mid substernal area. He denies any other associated symptoms whatsoever including fever/chills, headache, vision change, shortness of breath, cough, abdominal pain, nausea/vomiting, focal weakness, sensory changes, dysuria, or any other complaints. He has no pain or symptoms at this time. He had a negative stress test at the [facility] in January of this year. Severity scale (0 -10): 7 - Related Data Previous Rx's Medication Instructions Recorded Last Taken Type Ketorolac [Toradol] 10 mg PO Q6H PRN #10 tablet 07/13/20 Unknown Rx Hyoscyamine Subl [Levsin Sl 0.125 0.125 mg SL Q4HR PRN #20 tablet 10/11/20 Unknown Rx TAB] Omeprazole 40 mg PO DAILY #30 capsule. 10/11/20 Unknown Rx Allergies Allergy/AdvReac Type Severity Reaction Status Date / Time sertraline [From Zoloft] AdvReac Angioedema Verified 07/13/20 19:24 Heart Score - HEART Score History: Slightly suspicious EKG: Normal Age: 45-65 Risk factors: No known risk factors Troponin: < normal limit HEART Score: 1 - EKG Read Time Time EKG Completed: 22:46 EKG Read Time: 22:49 ED Review of Systems ROS: Stated complaint: CHEST PAIN Other details as noted in HPI Constitutional: denies: chills, fever Eyes: denies: eye pain, vision change ENT: denies: throat pain, congestion Respiratory: denies: cough, shortness of breath Cardiovascular: chest pain (only when bending over). denies: palpitations Gastrointestinal: denies: abdominal pain, nausea, vomiting Genitourinary: denies: dysuria, frequency Musculoskeletal: denies: back pain, joint swelling Skin: denies: rash Neurological: denies: headache, weakness, numbness ED Past Medical Hx - Past Medical History Previous Medical History?: Yes Hx Headaches / Migraines: Yes Hx Psychiatric Treatment: Yes (PTSD) - Surgical History Past Surgical History?: Yes Additional Surgical History: Vasectomy. Right Shoulder - Social History Smoking Status: Never Smoker Substance Use Type: None - Medications Home Medications: Home Medications Medication Instructions Recorded Confirmed Last Taken Type Ketorolac [Toradol] 10 mg PO Q6H PRN #10 tablet 07/13/20 Unknown Rx Hyoscyamine Subl [Levsin Sl 0.125 0.125 mg SL Q4HR PRN #20 tablet 10/11/20 Unknown Rx TAB] Omeprazole 40 mg PO DAILY #30 capsule. 10/11/20 Unknown Rx ED Physical Exam - General Limitations: No Limitations - Other Other exam information: GENERAL: Well developed and well nourished. No acute distress HEENT: Normocephalic. No obvious signs of trauma. Moist mucous membranes. EYES: Extraocular movements are intact. Pupils are equal round and reactive to light bilaterally NECK: Supple. Trachea is midline. LUNGS: Nonlabored breathing. Equal chest rise bilaterally. Clear to auscultation bilaterally. HEART/CARDIOVASCULAR: Regular rate and rhythm. No murmurs or rubs. VASCULAR: Cap refill < 2 seconds ABDOMEN: Abdomen is sslightly distended but soft. There is no significant tenderness, guarding or rebound. No hernia appreciated on my exam SKIN: Skin is warm and dry NEURO: Patient is awake, alert, and oriented. online user experience strategist II-XII grossly intact. No focal deficits. Normal motor and sensory exam throughout. Normal speech. Normal gait. MUSCULOSKELETAL: No obvious deformities. No significant tenderness. Normal ROM throughout. BACK/SPINE: No midline tenderness or step-offs of the C/T/L spine. No costovertebral angle tenderness. ED Course Vital Signs 03/05/21 03/06/21 03/06/21 22:54 07:27 08:40 Temperature 97.8 F Pulse Rate 79 62 78 Respiratory 16 19 19 Rate Blood Pressure 128/78 Blood Pressure 126/72 119/87 [Left] O2 Sat by Pulse 99 100 99 Oximetry KERVIN score - Kervin Score Age > 65: (0) No Aspirin use within the Past 7 Days: (0) No 3 or more CAD Risk Factors: (0) No 2 or more Angina events in past 24 hrs: (1) Yes Known CAD with more than 50% Stenosis: (0) No Elevated Cardiac Markers: (0) No ST Deviation Greater than 0.5mm: (0) No KERVIN Score: 1 ED Medical Decision Making - Lab Data Result diagrams: 03/05/21 23:06 03/05/21 23:06 Lab Results 03/05/21 03/05/21 03/06/21 Range/Units 23:06 23:06 02:05 WBC 6.4 (4.5-11.0) K/mm3 RBC 4.77 (3.65-5.03) M/mm3 Hgb 14.6 (11.8-15.2) gm/dl Hct 42.9 (35.5-45.6) % MCV 90 (84-94) fl MCH 31 (28-32) pg MCHC 34 (32-34) % RDW 12.6 L (13.2-15.2) % Plt Count 227 (140-440) K/mm3 Lymph % (Auto) 44.9 H (13.4-35.0) % [place] % (Auto) 9.2 H (0.0-7.3) % Eos % (Auto) 1.4 (0.0-4.3) % Baso % (Auto) 0.5 (0.0-1.8) % Lymph # (Auto) 2.9 (1.2-5.4) K/mm3 [place] # (Auto) 0.6 (0.0-0.8) K/mm3 Eos # (Auto) 0.1 (0.0-0.4) K/mm3 Baso # (Auto) 0.0 (0.0-0.1) K/mm3 Seg Neutrophils % 44.0 (40.0-70.0) % Seg Neutrophils # 2.8 (1.8-7.7) K/mm3 Sodium 137 (137-145) mmol/L Potassium 4.3 (3.6-5.0) mmol/L Chloride 98.9 (98-107) mmol/L Carbon Dioxide 27 (22-30) mmol/L Anion Gap 15 mmol/L BUN 21 H (9-20) mg/dL Creatinine 0.8 (0.8-1.3) mg/dL Estimated GFR > 60 ml/min BUN/Creatinine Ratio 26 % Glucose 87 (75-100) mg/dL Calcium 9.9 (8.4-10.2) mg/dL Total Bilirubin 0.50 (0.1-1.2) mg/dL AST 22 (5-40) units/L ALT 16 (7-56) units/L Alkaline Phosphatase 62 (35-129) units/L Troponin T < 0.010 < 0.010 (0.00-0.029) ng/mL Total Protein 7.9 (6.3-8.2) g/dL Albumin 5.1 H (3.9-5) g/dL Albumin/Globulin Ratio 1.8 % // Range/Units 06:33 WBC (4.5-11.0) K/mm3 RBC (3.65-5.03) M/mm3 Hgb (11.8-15.2) gm/dl Hct (35.5-45.6) % MCV (84-94) fl MCH (28-32) pg MCHC (32-34) % RDW (13.2-15.2) % Plt Count (140-440) K/mm3 Lymph % (Auto) (13.4-35.0) % [place] % (Auto) (0.0-7.3) % Eos % (Auto) (0.0-4.3) % Baso % (Auto) (0.0-1.8) % Lymph # (Auto) (1.2-5.4) K/mm3 [place] # (Auto) (0.0-0.8) K/mm3 Eos # (Auto) (0.0-0.4) K/mm3 Baso # (Auto) (0.0-0.1) K/mm3 Seg Neutrophils % (40.0-70.0) % Seg Neutrophils # (1.8-7.7) K/mm3 Sodium (137-145) mmol/L Potassium (3.6-5.0) mmol/L Chloride (98-107) mmol/L Carbon Dioxide (22-30) mmol/L Anion Gap mmol/L BUN (9-20) mg/dL Creatinine (0.8-1.3) mg/dL Estimated GFR ml/min BUN/Creatinine Ratio % Glucose (75-100) mg/dL Calcium (8.4-10.2) mg/dL Total Bilirubin (0.1-1.2) mg/dL AST (5-40) units/L ALT (7-56) units/L Alkaline Phosphatase (35-129) units/L Troponin T < 0.010 (0.00-0.029) ng/mL Total Protein (6.3-8.2) g/dL Albumin (3.9-5) g/dL Albumin/Globulin Ratio % - EKG Data -: EKG Interpreted by Ky - EKG Data 03/06/21 08:16 Normal sinus rhythm. - Radiology Data XR chest routine 2V INDICATION / CLINICAL INFORMATION: chest pain. COMPARISON: 01/12/2021 FINDINGS: SUPPORT DEVICES: None. HEART /PULMONARY VASCULATURE: No significant abnormality. LUNGS / PLEURA: No significant pulmonary or pleural abnormality. No pneumothorax. ADDITIONAL FINDINGS: No significant additional findings. IMPRESSION: 1. No acute findings. Signer Name: Davey Hughes MD Signed: 03/05/2021 10:23 PM Workstation Name: [id number] - Medical Decision Making 50-year-old male presents complaining of pain in his chest when he bends over and feels a hernia in his abdomen. Is unclear what kind of hernia he has. His chest pain only occurs when he bends over sometimes. It is nonradiating and not associated with any other symptoms. At this time he has no pain. On initial assessment, he is afebrile and with grossly normal vital signs. Physical exam is significant for tenderness over the mid sternum area. He has no abdominal tenderness or distention. The remainder of his physical exam is within normal limits. All labs have resulted and reveal no significant leukocytosis or anemia, no significant electrolyte abnormalities, and normal kidney function. He has had 3 - troponins. His heart score is 1. Given his 3 - troponins and the positional nature of his pain, I do not feel that his pain is cardiac in nature but I do feel that he needs to follow-up with a primary care doctor who may refer him to a surgeon. There is no indication for further work-up at this time. He will be given strict return precautions should his hernia be unreducible or should he experience worsening symptoms. We will fax a referral to the [facility] [place] for follow-up. All this was discussed with the patient expressed understanding and agreement. Critical care attestation.: If time is entered above; I have spent that time in minutes in the direct care of this critically ill patient, excluding procedure time. ED Disposition Clinical Impression: Chest pain Disposition: DC-01 TO HOME OR SELFCARE Is pt being admited?: Yes Condition: Stable Instructions: Nonspecific Chest Pain, Adult, Pain Without a Known Cause, Chest Wall Pain Additional Instructions: I have faxed a referral to the [facility] [place]. They should mike l you within a few days to schedule an appointment. If you do not hear from them within the next few days, please call the seasonal delivery driver listed in the referrals. Please follow-up with a primary care doctor in the next few days who may refer you to a general surgeon for your hernia. Return to the emergency department should your hernia be unable to be put back in, should he experiencing any worsening symptoms, or any other new concerns. Referrals: JONNATHAN PRETTY MD [Staff Physician] - 3-5 Days [facility] [Provider Group] - 3-5 Days
[2021-03-06 08:41] VITALS: BP 119/87
--- NOTE | 2021-03-06 10:21 | Electrocardiograph Report ---
[facility] Test Date: 2021-03-05 Test Time: 22:46:29 Pat Name: PASTORA HILL Department: Room: Gender: M Button Bradder: CRISTOFER : 1970 Requested By: ED DOC Order Number: [id number] Reading MD: Jonathan Mckenna Measurements Intervals [place] Rate: 72 P: 57 [place]: 177 QRS: -34 QRSD: 86 T: 39 QT: 385 QTc: 421 Interpretive Statements Sinus rhythm Probable left atrial enlargement Left axis deviation Compared to ECG 01/11/2021 23:41:55 No significant changes Electronically Signed On 03-06-2021 10:21:14 EDT by Jonathan Mckenna
== END 2021-03-06 08:41 | disposition home or self-care (01) ==
LOC: ED 22:11
DX: R07.9 Chest pain, unspecified (principal); F43.10 Post-traumatic stress disorder, unspecified; G43.909 Migraine, unspecified, not intractable, without status migrainosus; Z98.890 Other specified postprocedural states; Z88.2 Allergy status to sulfonamides
CPT/HCPCS: 36415; 71046; 80053; 84484; 85025; 93005; 99284

== ENCOUNTER 2021-11-20 19:14 | Emergency (ER) | payer MEDICARE, OTHER ==
[2021-11-20 19:47] LABS: Basophils % (Auto) 0.5 % (0.0-1.8); Eosinophils % (Auto) 0.4 % (0.0-4.3); Hematocrit 43.2 % (35.5-45.6); Hemoglobin 15.1 gm/dl (11.8-15.2); Lymphocytes # (Auto) 2.3 K/mm3 (1.2-5.4); Lymphocytes % (Auto) 28.4 % (13.4-35.0); Mean Corpuscular HGB Conc 35 % (32-34); Mean Corpuscular Volume 89 fl (84-94); Monocytes # (Auto) 0.5 K/mm3 (0.0-0.8); Monocytes % (Auto) 5.8 % (0.0-7.3); Platelet Count 259 K/mm3 (140-440); Red Blood Count 4.87 M/mm3 (3.65-5.03); Red Cell Distribution Width 13.1 % (13.2-15.2)
--- NOTE | 2021-11-20 19:59 | XRay Report ---
CHEST 2 VIEWS INDICATION / CLINICAL INFORMATION: chest pain. COMPARISON: 03/05/2021 FINDINGS: SUPPORT DEVICES: None. HEART / MEDIASTINUM: No significant abnormality. LUNGS / PLEURA: No significant pulmonary or pleural abnormality. No pneumothorax. ADDITIONAL FINDINGS: No significant additional findings. IMPRESSION: 1. No acute findings. Signer Name: Aiden Burrell MD Signed: 11/20/2021 7:54 PM Workstation Name: [id number]
[2021-11-20 20:08] LABS: Alanine Aminotransferase 23 units/L (7-56); Albumin 5.1 g/dL (3.9-5); BUN/Creatinine Ratio 26; Blood Urea Nitrogen 18 mg/dL (9-20); Calcium 9.5 mg/dL (8.4-10.2); Hemolysis Index 7
--- NOTE | 2021-11-20 23:38 | Emergency Department Report ---
ED Chest Pain HPI - General Chief Complaint: Chest Pain Stated Complaint: CHEST PAIN/NECK PAIN LEFT SIDE Time Seen by Provider: 11/20/21 23:31 Source: patient Mode of arrival: Ambulatory Limitations: No Limitations - History of Present Illness Initial Comments: Around 6 PM this patient developed some chest pain in the sternal area. He found it difficult to describe the pain. He denied nausea vomiting diaphoresis or radiation of his symptoms. The patient stated that he had palpitations. He has had no recent cough or cold symptoms and denies fever. - Related Data Previous Rx's Medication Instructions Recorded Last Taken Type Ketorolac [Toradol] 10 mg PO Q6H PRN #10 tablet 07/13/20 Unknown Rx Hyoscyamine Subl [Levsin Sl 0.125 0.125 mg SL Q4HR PRN #20 tablet 10/11/20 Unknown Rx TAB] Omeprazole 40 mg PO DAILY #30 capsule. 10/11/20 Unknown Rx Lansoprazole [Prevacid] 30 mg PO DAILY #20 tab 11/20/21 Unknown Rx Allergies Allergy/AdvReac Type Severity Reaction Status Date / Time sertraline [From Zoloft] AdvReac Angioedema Verified 07/13/20 19:24 Heart Score - HEART Score Age: 45-65 Troponin: < normal limit ED Review of Systems ROS: Stated complaint: CHEST PAIN/NECK PAIN LEFT SIDE Other details as noted in HPI Comment: All other systems reviewed and negative Constitutional: denies: chills, diaphoresis, fever, weakness Eyes: denies: eye pain, eye discharge, vision change ENT: denies: ear pain, throat pain Respiratory: denies: cough, shortness of breath, SOB with exertion, wheezing Cardiovascular: chest pain, palpitations Endocrine: no symptoms reported Gastrointestinal: denies: abdominal pain, nausea, diarrhea Musculoskeletal: denies: back pain, joint swelling, arthralgia Skin: denies: rash, lesions Neurological: denies: headache, weakness, paresthesias Psychiatric: denies: anxiety, depression Hematological/Lymphatic: denies: easy bleeding ED Past Medical Hx - Past Medical History Hx Headaches / Migraines: Yes Hx Psychiatric Treatment: Yes (PTSD) - Surgical History Additional Surgical History: Vasectomy. Right Shoulder - Social History Smoking Status: Never Smoker Substance Use Type: None - Medications Home Medications: Home Medications Medication Instructions Recorded Confirmed Last Taken Type Ketorolac [Toradol] 10 mg PO Q6H PRN #10 tablet 07/13/20 Unknown Rx Hyoscyamine Subl [Levsin Sl 0.125 0.125 mg SL Q4HR PRN #20 tablet 10/11/20 Unknown Rx TAB] Omeprazole 40 mg PO DAILY #30 capsule. 10/11/20 Unknown Rx Lansoprazole [Prevacid] 30 mg PO DAILY #20 tab 11/20/21 Unknown Rx ED Physical Exam - General Limitations: No Limitations ED Course Vital Signs 11/20/21 19:32 Temperature 98.8 F Pulse Rate 115 H Respiratory 18 Rate Blood Pressure 131/86 O2 Sat by Pulse 94 Oximetry DELL score - Dell Score Age > 65: (0) No Aspirin use within the Past 7 Days: (0) No 3 or more CAD Risk Factors: (0) No 2 or more Angina events in past 24 hrs: (1) Yes Known CAD with more than 50% Stenosis: (0) No Elevated Cardiac Markers: (0) No ST Deviation Greater than 0.5mm: (0) No DELL Score: 1 ED Medical Decision Making - Lab Data Result diagrams: 11/20/21 19:38 11/20/21 19:38 Reviewed with normal troponin x2 - EKG Data EKG shows normal: sinus rhythm, axis (Left axis deviation), intervals, QRS complexes (Normal), ST-T waves (No elevation) Rate: tachycardia - EKG Data Interpretation: no acute changes Critical care attestation.: If time is entered above; I have spent that time in minutes in the direct care of this critically ill patient, excluding procedure time. ED Disposition Clinical Impression: Atypical chest pain, GERD (gastroesophageal reflux disease) Disposition: HOME / SELF CARE / HOMELESS Is pt being admited?: No Condition: Stable Instructions: Nonspecific Chest Pain, Adult, Indigestion, [id number] Additional Instructions: Take an enteric-coated 81 mg aspirin each day. Take the Prevacid as prescribed. Follow-up with your primary physician next available appointment. Return to the emergency department if any issues. Prescriptions: Lansoprazole [Prevacid] 30 mg PO DAILY #20 tab Referrals: PRIMARY CARE, [Primary Care Provider] - 3-5 Days
[2021-11-21 00:07] VITALS: BP 137/89
--- NOTE | 2021-11-22 08:53 | Electrocardiograph Report ---
[facility] Test Date: 2021-11-20 Test Time: 19:22:17 Pat Name: PASTORA HILL Department: Room: Gender: M Cro: [id number] : 1970 Requested By: LYNDON CONNELLY Order Number: [id number] Reading MD: Brandon Mendez Measurements Intervals [place] Rate: 107 P: 71 [place]: 145 QRS: -43 QRSD: 77 T: 64 QT: 320 QTc: 426 Interpretive Statements Sinus tachycardia LAE, consider biatrial enlargement Left axis deviation [id number] Compared to ECG 03/05/2021 22:46:29 Sinus rhythm no longer present Electronically Signed On 11-22-2021 8:53:06 EDT by Brandon Mendez
== END 2021-11-21 00:07 | disposition home or self-care (01) ==
LOC: ED 19:14
DX: K21.9 Gastro-esophageal reflux disease without esophagitis (principal); G43.909 Migraine, unspecified, not intractable, without status migrainosus; Z88.8 Allergy status to other drugs, medicaments and biological substances; Z79.899 Other long term (current) drug therapy
CPT/HCPCS: 36415; 71046; 80053; 84484; 85025; 93005; 99283

== ENCOUNTER 2022-03-26 12:29 | Emergency (ER) | payer MEDICARE, OTHER ==
[2022-03-26 13:17] VITALS: BP 130/74
--- NOTE | 2022-03-26 13:38 | XRay Report ---
CHEST 2 VIEWS INDICATION / CLINICAL INFORMATION: Chest Pain. COMPARISON: 11/20/2021 FINDINGS: SUPPORT DEVICES: None. HEART / MEDIASTINUM: No significant abnormality. LUNGS / PLEURA: No significant pulmonary or pleural abnormality. No pneumothorax. ADDITIONAL FINDINGS: No significant additional findings. IMPRESSION: 1. No acute findings. Signer Name: Jayjay Chisholm MD Signed: 03/26/2022 1:34 PM Workstation Name: [id number]
[2022-03-26 15:13] LABS: Basophils % (Auto) 0.7 % (0.0-1.8); Eosinophils % (Auto) 0.6 % (0.0-4.3); Hematocrit 44.4 % (35.5-45.6); Hemoglobin 15.2 gm/dl (11.8-15.2); Lymphocytes # (Auto) 1.8 K/mm3 (1.2-5.4); Mean Corpuscular HGB Conc 34 % (32-34); Mean Corpuscular Volume 90 fl (84-94); Monocytes # (Auto) 0.4 K/mm3 (0.0-0.8); Monocytes % (Auto) 6.3 % (0.0-7.3); Platelet Count 190 K/mm3 (140-440); Red Blood Count 4.92 M/mm3 (3.65-5.03); Red Cell Distribution Width 13.9 % (13.2-15.2)
[2022-03-26 15:20] LABS: INR 0.85 (0.87-1.13)
[2022-03-26 15:25] LABS: Alanine Aminotransferase 15 units/L (7-56); Blood Urea Nitrogen 12 mg/dL (9-20); Calcium 9.7 mg/dL (8.4-10.2); Hemolysis Index 12
[2022-03-26 15:42] LABS: Partial Thromboplastin Time 29.5 Sec. (24.2-36.6)
[2022-03-26 15:45] LABS: BUN/Creatinine Ratio 17
--- NOTE | 2022-03-29 10:08 | Electrocardiograph Report ---
[facility] Test Date: 2022-03-26 Test Time: 13:20:57 Pat Name: PASTORA HILL Department: Room: Gender: M Entertainment Director: 0000 : 1970 Requested By: ED DOC Order Number: [id number] Reading MD: Rosy Houston Measurements Intervals [place] Rate: 85 P: 55 [place]: 156 QRS: -35 QRSD: 87 T: 41 QT: 372 QTc: 443 Interpretive Statements Sinus rhythm Left axis deviation Compared to ECG 11/20/2021 19:22:17 Sinus rate has decreased Electronically Signed On 03-29-2022 10:07:44 EDT by Rosy Houston
== END 2022-03-26 23:45 | disposition left against medical advice (07) ==
LOC: ED 12:29
DX: R07.9 Chest pain, unspecified (principal); Z53.21 Procedure and treatment not carried out due to patient leaving prior to being seen by health care provider
CPT/HCPCS: 36415; 71046; 80053; 84484; 85025; 85610; 85730; 93005